=== PATIENT | female | born 1975 | race Caucasian/White ===

== ENCOUNTER 2018-03-15 11:10 | Emergency (ER) | payer BC ==
[2018-03-15] MEDS ORDERED: LORazepam INJ* 2 MG/ML 1 ML VIAL IV PUSH ONE (11:54)
[2018-03-15 12:10] LABS: ABS Basophils 0.1 10^3/ul (0-0.2); ABS Eosinophils 0.1 10^3/ul (0-0.6); ABS Lymphocytes 2.1 10^3/ul (1.0-4.8); ABS Monocytes 0.5 10^3/ul (0-0.8); ABS Neutrophils 4.7 10^3/ul (1.5-7.7); ABS Nucleated RBC 0 10^3/ul; Eosinophil % 1.1 % (0-6); Hematocrit 42 % (35-47); Hemoglobin 14.4 g/dl (12.0-16.0); Lymphocyte % 27.8 % (25-47); Mean Corpuscular HGB Conc 34 g/dl (31-36); Mean Corpuscular Hemoglobin 30 pg (27-31); Mean Corpuscular Volume 88 fL (80-97); Mean Platelet Volume 8.1 um3 (7.4-10.4); Nucleated Red Blood Cells % 0; Platelet Count 215 10^3/ul (150-450); Red Blood Count 4.81 10^6/ul (4.00-5.40); Red Cell Distribution Width 14 % (10.5-15); White Blood Count 7.5 10^3/ul (3.5-10.8)
--- NOTE | 2018-03-15 12:12 | ED ---
Psychiatric Complaint - HPI Summary HPI Summary: This is nicolás Perez documenting for attending Alexi Sandra MD. Pt is a 42 y/o female who [facility] [place] [facility] 5 days. She states she s never had panic attacks before. Pt saw her PCP for the anxiety and was given Xanax and Citalopram, but states that even after taking 2 Xanax pills her anxiety does not resolve. She attacks consist of CP, nausea, SOB, shaking, heart pounding, crying, loss of appetite, and anxiety. Pt currently has some CP which is resolving, but still feels anxious. She took a Xanax at 9:00 today. Pt reports being under stress lately, since she is going through a divorce and has been out of work for 2 months due to an injury. She states that this is an abnormal reaction to life stressors. Pt denies any smoking or alcohol usage. - History Of Current Complaint Chief Complaint: EDChestPainROMI Time Seen by Provider: 03/15/18 11:37 Hx Obtained From: Patient Onset/Duration: Gradual Onset, Lasting Days - 5, Still Present Timing: Intermittent Episode Lasting Character: Anxious Aggravating Factor(s): Recent Stress Alleviating Factor(s): Nothing Associated Signs And Symptoms: Positive: Appetite Change - Decreased Related History: Negative For: Prior Psychiatric Issues Has Suicidal: Denies: Thoughts Has Homicidal: Denies: Thoughts Ingestion History: Type/Name Of Drug - Prescribed Xanax, Amount Ingested - 1 pill, Approximate Time Of Ingestion - 9:00 - Allergies/Home Medications Allergies/Adverse Reactions: Allergies Allergy/AdvReac Type Severity Reaction Status Date / Time epinephrine Allergy Severe See Comment Verified 03/15/18 12:30 lidocaine Allergy See Comment Verified 03/15/18 12:30 tree and shrub pollen Allergy Difficulty Verified 03/15/18 12:30 Breathing/Wheezing PMH/Surg Hx/FS Hx/Imm Hx Endocrine/Hematology History: Reports: Other Endocrine/Hematological Disorders - Parotidectomy Psychiatric History: Denies: Hx Anxiety, Hx Panic Disorder Infectious Disease History: No Infectious Disease History: Denies: Traveled Outside the [place] in Last 30 Days - Family History Known Family History: Positive: Diabetes, Other - Skin cancer - Social History Alcohol Use: None Hx Tobacco Use: No Smoking Status (MU): Never Smoked Tobacco Review of Systems Positive: Other - Shaking Positive: Chest Pain, Other - Heart pounding Positive: Shortness Of Breath Positive: Nausea, Other - Loss of appetite Positive: Anxious, Other - Crying All Other Systems Reviewed And Are Negative: Yes Physical Exam - Summary Physical Exam Summary: VITAL SIGNS: Reviewed. GENERAL: Patient is a well-developed and nourished FEMALE who is lying comfortable in the stretcher. Patient is not in any acute respiratory distress. HEAD AND FACE: No signs of trauma. No ecchymosis, hematomas or skull depressions. No sinus tenderness. EYES: PERRLA, EOMI x 2, No injected conjunctiva, no nystagmus. EARS: Hearing grossly intact. Ear canals and tympanic membranes are within normal limits. MOUTH: Oropharynx within normal limits. NECK: Supple, trachea is midline, no adenopathy, no JVD, no carotid bruit, no c- spine tenderness, neck with full ROM. CHEST: Symmetric, no tenderness at palpation LUNGS: Clear to auscultation bilaterally. No wheezing or crackles. CVS: Regular rate and rhythm, S1 and S2 present, no murmurs or gallops appreciated. ABDOMEN: Soft, non-tender. No signs of distention. No rebound no guarding, and no masses palpated. Bowel sounds are normal. EXTREMITIES: FROM in all major joints, no edema, no cyanosis or clubbing. NEURO: Alert and oriented x 3. No acute neurological deficits. Speech is normal and follows commands. SKIN: Dry and warm Triage Information Reviewed: Yes Vital Signs On Initial Exam: Initial Vitals Temp Pulse Resp BP Pulse Ox 97.6 F 73 18 153/91 98 03/15/18 11:19 03/15/18 11:19 03/15/18 11:19 03/15/18 11:19 03/15/18 11:19 Vital Signs Reviewed: Yes Diagnostics - Vital Signs Vital Signs Temp Pulse Resp BP Pulse Ox 03/15/18 11:19 97.6 F 73 18 153/91 98 - Laboratory Result Diagrams: 03/15/18 12:01 03/15/18 12:01 Lab Statement: Any lab studies that have been ordered have been reviewed, and results considered in the medical decision making process. - Radiology CXR Xray Interpretation: No Acute Changes - 11:37 No evidence for acute intrathoracic disease. ED physician reviewed radiology report. Radiology Interpretation Completed By: Radiologist - EKG 11:42 Cardiac Rate: NL - 64 bpm EKG Rhythm: Sinus Rhythm ST Segment: Normal Course/Dx - Course Assessment/Plan: Patient is a 42-year-old female who presents to the emergency department with a chief complaint of anxiety and chest pain. The patient reports that she is going through a lot and management of stress and since the patient is getting panic attacks. Test results without any significant abnormality including a troponin of 0.00. Chest x-ray shows no acute pathology. EKG is a sinus rhythm without any ST elevations. Since the patient does have any other comorbidities I believe that the patient may be having anxiety. Therefore the patient will be discharged home with follow-up with PCP. I have no suspicion for PE since the patient is not tachycardic or hypoxic. At this time I discussed my findings and test results with the patient and the need to follow-up with PCP. All concerns were addressed and she has no further questions. - Differential Dx/Clinical Impression Provider Diagnosis: Atypical chest pain, Anxiety, Panic attacks Discharge - Sign-Out/Discharge Documenting (check all that apply): Patient Departure - Discharge - Discharge Plan Condition: Stable Disposition: HOME Patient Education Materials: Chest Pain (ED), Anxiety (ED), Panic Attack (ED) Referrals: [facility]IAN REFERRAL [Outside] - 3 Days Additional Instructions: RETURN TO THE ED FOR ANY WORSENING OR NEW SYMPTOMS.
[2018-03-15 12:30] LABS: EGFR Non-African American 102.3 (>60)
[2018-03-15 13:20] VITALS: BP 140/98
--- NOTE | 2018-03-15 13:24 | RAD ---
Indication: Chest pain and tightness. Panic attack. Comparison: No relevant prior exams available on the [facility] PACS for comparison. Technique: Upright AP 1211 hours Report: Large body habitus limits image quality. Clear lungs and pleural spaces. Negative for pneumothorax. The heart, pulmonary vasculature, and mediastinal contours are unremarkable. Unremarkable osseous structures and soft tissue contours accounting for large body habitus. IMPRESSION: #. No evidence for acute intrathoracic disease.
== END 2018-03-15 13:19 | disposition home or self-care (01) ==
LOC: ED 11:10
DX: R07.89 Other chest pain (principal); F41.0 Panic disorder [episodic paroxysmal anxiety]; Z88.4 Allergy status to anesthetic agent; Z88.8 Allergy status to other drugs, medicaments and biological substances; Z83.3 Family history of diabetes mellitus; Z80.8 Family history of malignant neoplasm of other organs or systems
CPT/HCPCS: 36415; 71045; 80053; 82550; 82553; 83605; 83735; 83880; 84443; 84484; 84702; 85025; 93005; 96374; 99283; J2060